=== PATIENT | male | born 1950 | race Caucasian/White ===

== ENCOUNTER 2016-10-17 21:16 | Emergency (ER) | payer OTHER, MEDICARE ==
[~2016-10-17] VITALS: Ht 172.7 cm; Wt 74.8 kg
[~2016-10-17 21:16] MED LIST: ACIDOPHILUS1 EACH PO; ALDACTONE100 MG PO; AMLODIPINE BESYL5 M1 PO; BACTRIM 400-801 EACH PO; ENOXAPARIN100 MG/ML SC; FLOMAX(MONOGRA0.4 MG PO; FLOMAX0.4 M1 PO; FLUCONAZOLE200 M1 PO; FUROSEMIDE20 MG PO; HEPATITIS B VACCINE 10 MCG/ML IM; IMODIUM A-D2 M1 PO; LACTULOSE10 GM/15 M PO; LOVENOX40 MG/0.1 SC; NADOLOL40 MG PO; NEPRO CARB STE237 ML G TUBE; OMEPRAZOLE40 M1 PO; OMEPRAZOLE40 MG PO; OXYCODONE HCL5 M1 PO; OXYCODONE HCL5 MG PO; OXYCODONE5 MG PO; PANTOPRAZOLE SO40 M1 PO; PERCOCET 325 MG1 TA2 PO; PREDNISONE5 M1 PO; PROBIOTIC1 EACH PO; PROGRAF1 M1 PO; PROTONIX 40MG T40 MG PO; ROXICODONE5 MG PO; SENNA PLUS 50 M1 TAB PO; SPIRONOLACTONE50 MG PO; SUCRALFATE1 G1 PO; TRAMADOL HCL50 M1 PO; TRAMADOL HYDROC50 MG PO; TRAMADOL50 MG PO; TRAZODONE HCL50 M1 PO; TRAZODONE50 MG PO; TUMS X-STR300 MG PO; ULTRAM(MONOGRAP50 MG PO; VALGANCICLOVIR450 MG; VALGANCICLOVIR450 MG PO; VITAMIN D50000 IU PO; WARFARIN SODIUM5 MG PO; XIFAXAN550 MG PO; ZINC15 MG PO; ZOFRAN 4 MG TABL4 MG PO; ZOFRAN ODT4 M1 PO; [UNRECOGNIZED DRUG - CODE] SC; [UNRECOGNIZED DRUG - OTHER] PO
--- NOTE | 2016-10-17 22:02 | ED ANIMAL BITE/WOUND CHECK ---
History of Present Illness General Chief Complaint: Animal/Insect Bite Stated Complaint: DOG BITE TOO ARMS Source: patient, family, old records Exam Limitations: no limitations Vital Signs & Intake/Output Vital Signs & Intake/Output Vital Signs Date Time Temp Pulse Resp B/P Pulse O2 O2 Flow FiO2 Ox Delivery Rate 10/17 2127 99.6 80 20 195/90 99 Room Air Allergies Coded Allergies: NO KNOWN ALLERGIES (10/17/16) Reconcile Medications Amlodipine Besylate 5 MG TABLET 1 TAB PO DAILY ELEVATED BP (Reported) PLEASE FOLLOW UP WITH YOUR PCP WITHIN ONE WEEK FOR ADIVICE ON CONTINUING THIS MEDICAITON. PlEASE DONT TAKE THE MEDICATION, IF THE BP IS LESS THAN 110. Amoxicillin/Potassium Clav (Augmentin 875-125 Tablet) 875 MG-125 MG TABLET 1 TAB PO BID DOG BITE Calcium Carbonate (Tums X-Str) 300 MG CALCIUM (750 MG) TAB.CHEW 2 TAB PO TID HEART BURN (Reported) Enoxaparin Sodium (Lovenox) 40 MG/0.4 ML SYRINGE 0.4 ML SC QPM BLOOD THINNER (Reported) Fluconazole 200 MG TABLET 1 TAB PO DAILY PREVENT INFECTION (Reported) Lactobacillus Acidophilus (Acidophilus) 1 EACH CAPSULE 1 CAP PO BID SUPPLEMENT (Reported) Loperamide HCl (Imodium A-D) 2 MG TABLET 3 TAB PO QAM GI (Reported) Loperamide HCl (Imodium A-D) 2 MG TABLET 2 TAB PO QPM GI (Reported) Nut.tx.impaired Renal Fxn,Soy (Nepro Carb Steady) 0.08 GRAM-1.80 KCAL/ML LIQUID 720 ML G TUBE QPM SUPPLEMENT (Reported) Ondansetron (Zofran Odt) 4 MG TAB.RAPDIS 2 TAB PO TID-4XDAILY N/V (Reported) Oxycodone HCl/Acetaminophen (Percocet 5-325 MG Tablet) 5 MG-325 MG TABLET 1-2 TAB PO Q6P PRN PAIN Pantoprazole Sodium 40 MG TABLET.DR 1 TAB PO BID GI (Reported) Prednisone 5 MG TABLET 1 TAB PO DAILY PREVENTS REJECTION (Reported) Sucralfate 1 GRAM TABLET 1 TAB PO BID GI (Reported) Tacrolimus (Prograf) 1 MG CAPSULE 2 CAP PO BID PREVENTS REJECTION (Reported) Tamsulosin HCl (Flomax) 0.4 MG CAP.ER.24H 1 CAP PO DAILY PROSTATE (Reported) Tramadol HCl 50 MG TABLET 1 TAB PO TID PRN PAIN (Reported) Valganciclovir HCl (Unknown Strength) TABLET (Unknown Dose) UNKNOWN (Reported ) Triage Note: TRIAGE: PT TO ER WITH S/O C/C MULTIPLE DOG BITES TO BILATERAL ARMS S/P ENCOUNTER WITH UNKNOWN DOG IN THE YARD TONIGHT. PT TAKES ANTI-REJECTION MEDS AT BASELINE R/T HX OF LIVER, STOMACH, PANCREAS AND SMALL BOWEL TRANSPLANTS 12/2015. Triage Nurses Notes Reviewed? yes HPI: Patient lied to his back yard to get blood for his fire when he noticed a stray dog by the woodpile. Patient attempt to schedule without way with the dog jumped on him and bit him both arms. The dog then ran away. Patient has never seen this dog before. Patient is complaining of 10 out of 10 pain to both arms. The pain is burning in nature. The pain is constant. There is no radiation of the pain. There are no aggravating or mitigating factors. Patient states his last tetanus shot was 2 and half years ago. Past History Travel History Traveled to [place] past 21 day No Medical History Any Pertinent Medical History? see below for history Neurological: uncertain if history of PSE (?ENCEPHALOPATHY) EENT: NONE Cardiovascular: NONE Respiratory: HANCOCK Gastrointestinal: HERNIA SMALL INTESTINE SURGERY Hepatic: CIRRHOSIS,LIVER TRANSPLAN HEPC, PANCREAS TRANSPLAN END STAGE LIVER DISEASE hepatocellular carcinoma ETOH CIRRHOSIS ascites esophageal varices & hx PVT. Renal: nephrolithiasis, KIDNEY FAILURE Musculoskeletal: NONE Psychiatric: anxiety Endocrine: NONE Blood Disorders: coagulopathy, pancytopenia, thrombocytopenia Cancer(s): liver cancer SUPPLY CHAIN COORDINATOR/Reproductive: NONE History of MRSA: No History of VRE: No History of CDIFF: No Pneumonia Vaccine: 03/31/16 Influenza Vaccine: 06/01/16 Surgical History Surgical History: appendectomy, cholecystectomy, PARTIAL HEPATECTOMY 2011 transplantation of the liver, small bowel,pancreas and stomach pancreas Psychosocial History Who do you live with Spouse Services at Home Nursing What is your primary language German Tobacco Use: Quit >30 days ago ETOH Use: denies use Illicit Drug Use: denies illicit drug use Family History Family History, If Any: MOTHER, , Age 78; Cause: CVA (cerebral vascular accident). FATHER (PTSD). , Age 42; Cause: PNA (pneumonia). maternal uncle, ; Cause: Esophageal adenocarcinoma. Relation not specified for: FH: CVA (cerebrovascular accident) Hx Contributory? No Review of Systems Review of Systems Constitutional: Reports: no symptoms. EENTM: Reports: no symptoms. Respiratory: Reports: no symptoms. Cardiovascular: Reports: no symptoms. GI: Reports: no symptoms. Genitourinary: Reports: no symptoms. Musculoskeletal: Reports: see HPI. Skin: Reports: no symptoms. Neurological/Psychological: Reports: no symptoms. Hematologic/Endocrine: Reports: no symptoms. Immunologic/Allergic: Reports: no symptoms. All Other Systems: Reviewed and Negative Physical Exam Physical Exam General Appearance: well developed/nourished, alert, awake, moderate distress Head: atraumatic Eyes: Bilateral: PERRL, EOMI. Ears, Nose, Throat: normal pharynx, normal ENT inspection, hearing grossly normal Neck: normal inspection, supple Respiratory: normal breath sounds Cardiovascular: regular rate/rhythm Gastrointestinal: soft, non-tender Back: normal inspection Extremities: normal range of motion, MULTIPLE SKIN TEARS TO BOTH FOREARMS. nO EVIDENCE OF PUNCTURE WOUNDS. nOTHING TO SUTURE. Neurologic/Psych: awake, alert, oriented x 3, normal mood/affect Skin: intact, normal color, warm/dry Lymphatic: no anterior cervical nadiya Progress Differential Diagnosis: DOG BITE Plan of Care: Current Medications Sig/Tahira Start time Last Medication Dose Stop Time Status Admin Oxycodone/ 1 TAB ONCE ONE 10/17 2214 UNVr Acetaminophen 10/17 2215 (Percocet) Rabies Immune 1,500 UNITS ONCE ONE 10/17 2214 UNVr Globulin 10/17 2215 (Rabies Immune Globlulin Inj) Rabies Vaccine 1 SYR ONCE ONE 10/17 2214 UNVr (Rabies (Vaccine) 10/17 2215 Inj (1ML)) Comments: Wounds have been cleaned and bacitracin applied. Patient started on rabies prophylaxis. Departure Departure Disposition: HOME OR SELF CARE Condition: Stable Clinical Impression Primary Impression: Dog bite Referrals: JEREMÍAS PATEL MD (PCP/Family) Additional Instructions: YOU NEED TO RETURN IN 3, 7 AND 14 DAYS FROM TODAY TO COMPLETE THE RABIES SHOTS TAKE ANTIBIOTICS PRESCRIBED RETURN IF SYMPTOMS WORSEN OR FOR ANY CONCERNS Departure Forms: Customer Survey General Discharge Information Prescriptions: Current Visit Scripts Amoxicillin/Potassium Clav (Augmentin 875-125 Tablet) 1 TAB PO BID #20 TAB Oxycodone HCl/Acetaminophen (Percocet 5-325 MG Tablet) 1-2 TAB PO Q6P PRN PAIN #20 TAB
[2016-10-17] MEDS ORDERED: PERCOCET 5-3251 EACH PO (22:08)
[2016-10-17] MEDS ORDERED: AUGMENTIN 875-1 EACH PO (22:08)
[2016-10-17 23:49] VITALS: BP 195/98
== END 2016-10-17 23:51 ==
LOC: ERH 21:16
DX: S41.151A Open bite of right upper arm, initial encounter (principal); S41.152A Open bite of left upper arm, initial encounter; W54.0XXA Bitten by dog, initial encounter
CPT/HCPCS: 90376; 90471

== ENCOUNTER 2016-10-20 14:29 | Emergency (ER) | payer OTHER, MEDICARE ==
[~2016-10-20] VITALS: Ht 172.7 cm; Wt 74.8 kg
[~2016-10-20 14:29] MED LIST changes: +AUGMENTIN 875-1 EACH PO; +PERCOCET 5-3251 EACH PO
[2016-10-20 14:55] VITALS: BP 165/85
--- NOTE | 2016-10-20 15:44 | ED GENERAL ADULT ---
History of Present Illness General Chief Complaint: Animal/Insect Bite Stated Complaint: 2ND RABIES DOT Source: patient Exam Limitations: no limitations Vital Signs & Intake/Output Vital Signs & Intake/Output Vital Signs Date Time Temp Pulse Resp B/P Pulse O2 O2 Flow FiO2 Ox Delivery Rate 10/20 1455 97.4 80 18 165/85 99 Room Air Allergies Coded Allergies: NO KNOWN ALLERGIES (10/17/16) Reconcile Medications Amlodipine Besylate 5 MG TABLET 1 TAB PO DAILY ELEVATED BP (Reported) PLEASE FOLLOW UP WITH YOUR PCP WITHIN ONE WEEK FOR ADIVICE ON CONTINUING THIS MEDICAITON. PlEASE DONT TAKE THE MEDICATION, IF THE BP IS LESS THAN 110. Amoxicillin/Potassium Clav (Augmentin 875-125 Tablet) 875 MG-125 MG TABLET 1 TAB PO BID DOG BITE Calcium Carbonate (Tums X-Str) 300 MG CALCIUM (750 MG) TAB.CHEW 2 TAB PO TID HEART BURN (Reported) Enoxaparin Sodium (Lovenox) 40 MG/0.4 ML SYRINGE 0.4 ML SC QPM BLOOD THINNER (Reported) Fluconazole 200 MG TABLET 1 TAB PO DAILY PREVENT INFECTION (Reported) Lactobacillus Acidophilus (Acidophilus) 1 EACH CAPSULE 1 CAP PO BID SUPPLEMENT (Reported) Loperamide HCl (Imodium A-D) 2 MG TABLET 3 TAB PO QAM GI (Reported) Loperamide HCl (Imodium A-D) 2 MG TABLET 2 TAB PO QPM GI (Reported) Nut.tx.impaired Renal Fxn,Soy (Nepro Carb Steady) 0.08 GRAM-1.80 KCAL/ML LIQUID 720 ML G TUBE QPM SUPPLEMENT (Reported) Ondansetron (Zofran Odt) 4 MG TAB.RAPDIS 2 TAB PO TID-4XDAILY N/V (Reported) Oxycodone HCl/Acetaminophen (Percocet 5-325 MG Tablet) 5 MG-325 MG TABLET 1-2 TAB PO Q6P PRN PAIN Pantoprazole Sodium 40 MG TABLET.DR 1 TAB PO BID GI (Reported) Prednisone 5 MG TABLET 1 TAB PO DAILY PREVENTS REJECTION (Reported) Sucralfate 1 GRAM TABLET 1 TAB PO BID GI (Reported) Tacrolimus (Prograf) 1 MG CAPSULE 2 CAP PO BID PREVENTS REJECTION (Reported) Tamsulosin HCl (Flomax) 0.4 MG CAP.ER.24H 1 CAP PO DAILY PROSTATE (Reported) Tramadol HCl 50 MG TABLET 1 TAB PO TID PRN PAIN (Reported) Valganciclovir HCl (Unknown Strength) TABLET (Unknown Dose) UNKNOWN (Reported ) Triage Note: 66 Y/O MALE REQUESTING 2ND RABIES VACCINE; DENIES ANY COMPLAINTS Triage Nurses Notes Reviewed? yes Onset: Gradual Duration: day(s): (3) Timing: recent history Injury Environment: home Severity: mild HPI: Patient is here for second rabies vaccinations. No complaints. Denies any fevers or chills no headaches. No visual changes. Denies any nausea or vomiting chest pain or shortness of breath. (RACHEAL BRENNAN) Past History Travel History Traveled to [place] past 21 day No Medical History Any Pertinent Medical History? see below for history Neurological: uncertain if history of PSE (?ENCEPHALOPATHY) EENT: NONE Cardiovascular: NONE Respiratory: HANCOCK Gastrointestinal: HERNIA SMALL INTESTINE SURGERY Hepatic: CIRRHOSIS,LIVER TRANSPLAN HEPC, PANCREAS TRANSPLAN END STAGE LIVER DISEASE hepatocellular carcinoma ETOH CIRRHOSIS ascites esophageal varices & hx PVT. Renal: nephrolithiasis, KIDNEY FAILURE Musculoskeletal: NONE Psychiatric: anxiety Endocrine: NONE Blood Disorders: coagulopathy, pancytopenia, thrombocytopenia Cancer(s): liver cancer BILLING CONTROL CLERK/Reproductive: NONE History of MRSA: No History of VRE: No History of CDIFF: No Pneumonia Vaccine: 03/31/16 Influenza Vaccine: 06/01/16 Surgical History Surgical History: appendectomy, cholecystectomy, PARTIAL HEPATECTOMY 2012 transplantation of the liver, small bowel,pancreas and stomach pancreas Psychosocial History Who do you live with Spouse Services at Home Nursing What is your primary language Armenian Tobacco Use: Quit >30 days ago Family History Family History, If Any: MOTHER, , Age 78; Cause: CVA (cerebral vascular accident). FATHER (PTSD). , Age 42; Cause: PNA (pneumonia). maternal uncle, ; Cause: Esophageal adenocarcinoma. Relation not specified for: FH: CVA (cerebrovascular accident) Hx Contributory? No (RACHEAL BRENNAN) Review of Systems Review of Systems Constitutional: Reports: no symptoms. Comments Review of systems: See HPI, All other systems negative. Constitutional, no chills fever or weight loss HEENT: No visual changes no sore throat no congestion Cardiovascular: No chest pain ,palpitation Skin, no jaundice no rashes Respiratory: No dyspnea cough sputum or hemoptysis GI: No nausea no vomiting Muscle skeletal: no back pain, no neck pain, Neurologic: No numbness no confusion Psych: No stress anxiety Immunology: No splenectomy or history of AIDS (RACHEAL BRENNAN) Physical Exam Physical Exam General Appearance: well developed/nourished, no apparent distress, alert, awake , comfortable Comments: Well-developed well-nourished no apparent distress. HEENT: Atraumatic, extraocular motion intact Neck: Supple, no lymphadenopathy Back: Nontender Respiratory: No respiratory distress Extremities: No edema, full range of motion Neuro: Alert and oriented x3 Psych: Mood affect normal, normal memory normal judgment. Core Measures ACS in differential dx? No CVA/TIA Diagnosis: No Severe Sepsis Present: No Septic Shock Present: No (RACHEAL BRENNAN) Progress Differential Diagnoses I considered the following diagnoses in my evaluation of the patient: Need for prophylaxis against rabies Plan of Care: Current Medications Sig/Tahira Start time Last Medication Dose Stop Time Status Admin Rabies Vaccine 1 SYR ONCE ONE 10/20 1545 UNVr (Rabies (Vaccine) 10/20 1546 Inj (1ML)) Initial ED EKG: none Comments: Given rabies immunization (RACHEAL BRENNAN) Departure Departure Time of Disposition: 1551 Disposition: HOME OR SELF CARE Condition: Stable Clinical Impression Primary Impression: Rabies, need for prophylactic vaccination against Referrals: JEREMÍAS PATEL MD (PCP/Family) Additional Instructions: Follow-up as scheduled for Next rabies vaccination return for worsening symptoms or concerns. Departure Forms: Customer Survey General Discharge Information (RACHEAL BRENNAN) PA/MACHINE CARTON MARKER Co-Sign Statement Statement: ED Attending supervision documentation- [] I saw and evaluated the patient. I have also reviewed all the pertinent lab results and diagnostic results. I agree with the findings and the plan of care as documented in the PA's/MACHINE CARTON MARKER's documentation. [X] I have reviewed the ED Record and agree with the PA's/MACHINE CARTON MARKER's documentation. [] Additions or exceptions (if any) to the PAs/MACHINE CARTON MARKER's note and plan are summarized below: [] (YUKO MARIE,MITRA) Critical Care Note Critical Care Note Critical Care Time: non-applicable (RACHEAL BRENNAN)
== END 2016-10-20 16:19 ==
LOC: ERH 14:29
DX: Z23 Encounter for immunization (principal)
CPT/HCPCS: 90471; 99281

== ENCOUNTER 2017-02-22 19:56 | Emergency (ER) | payer OTHER, MEDICARE ==
[~2017-02-22] VITALS: Ht 172.7 cm; Wt 74.8 kg
--- NOTE | 2017-02-22 20:20 | ED ANIMAL BITE/WOUND CHECK ---
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 DOG IS CURRENT WITH IMMUNIZATIONS. DOG IS A CATAHOULA LEOPARD. "A [employer] DOG" AND IS 100 LBS. PT IS CURRENT WITH TETANUS. Triage Nurses Notes Reviewed? yes Onset: Abrupt Duration: minute(s):, constant, continues in ED Timing: single episode today Injury Environment: home Is Injury an Animal Bite? Yes Animal Type: dog No Modifying Factors: none HPI: 67-year-old male comes into emergency room for further evaluation of multiple dog bites and skin abrasions to his bilateral upper extremities. Dog is up-to- date on its rabies. and were dancing and the dog jumped up and got defensive. Multiple bites/abrasions on bilateral upper extremities as well as bites on left ankle. Patient's tetanus shot is up-to-date. he is a transplant patient with a history of liver transplant as well as ball and stomach transplant. (ALIS BANEGAS,KEV) Reconcile Medications Amlodipine Besylate 5 MG TABLET 1 TAB PO DAILY ELEVATED BP (Reported) PLEASE FOLLOW UP WITH YOUR PCP WITHIN ONE WEEK FOR ADIVICE ON CONTINUING THIS MEDICAITON. PlEASE DONT TAKE THE MEDICATION, IF THE BP IS LESS THAN 110. Amoxicillin/Potassium Clav (Augmentin 875-125 Tablet) 875 MG-125 MG TABLET 1 TAB PO BID dog bite Amoxicillin/Potassium Clav (Augmentin 875-125 Tablet) 875 MG-125 MG TABLET 1 TAB PO BID DOG BITE Calcium Carbonate (Tums X-Str) 300 MG CALCIUM (750 MG) TAB.CHEW 2 TAB PO TID HEART BURN (Reported) Enoxaparin Sodium (Lovenox) 40 MG/0.4 ML SYRINGE 0.4 ML SC QPM BLOOD THINNER (Reported) Fluconazole 200 MG TABLET 1 TAB PO DAILY PREVENT INFECTION (Reported) Lactobacillus Acidophilus (Acidophilus) 1 EACH CAPSULE 1 CAP PO BID SUPPLEMENT (Reported) Loperamide HCl (Imodium A-D) 2 MG TABLET 3 TAB PO QAM GI (Reported) Loperamide HCl (Imodium A-D) 2 MG TABLET 2 TAB PO QPM GI (Reported) Nut.tx.impaired Renal Fxn,Soy (Nepro Carb Steady) 0.08 GRAM-1.80 KCAL/ML LIQUID 720 ML G TUBE QPM SUPPLEMENT (Reported) Ondansetron (Zofran Odt) 4 MG TAB.RAPDIS 2 TAB PO TID-4XDAILY N/V (Reported) Oxycodone HCl 5 MG TABLET 1-2 TAB PO Q8P PRN pain Oxycodone HCl/Acetaminophen (Percocet 5-325 MG Tablet) 5 MG-325 MG TABLET 1-2 TAB PO Q6P PRN PAIN Pantoprazole Sodium 40 MG TABLET.DR 1 TAB PO BID GI (Reported) Prednisone 5 MG TABLET 1 TAB PO DAILY PREVENTS REJECTION (Reported) Sucralfate 1 GRAM TABLET 1 TAB PO BID GI (Reported) Tacrolimus (Prograf) 1 MG CAPSULE 2 CAP PO BID PREVENTS REJECTION (Reported) Tamsulosin HCl (Flomax) 0.4 MG CAP.ER.24H 1 CAP PO DAILY PROSTATE (Reported) Tramadol HCl 50 MG TABLET 1 TAB PO TID PRN PAIN (Reported) Valganciclovir HCl (Unknown Strength) TABLET (Unknown Dose) UNKNOWN (Reported ) (DERRICK MARIE,TAMERA Mendoza) Past History Travel History Traveled to [place] past 21 day No Medical History Any Pertinent Medical History? see below for history Neurological: uncertain if history of PSE (?ENCEPHALOPATHY) EENT: NONE Cardiovascular: NONE Respiratory: HANCOKC Gastrointestinal: HERNIA SMALL INTESTINE SURGERY Hepatic: CIRRHOSIS,LIVER TRANSPLAN HEPC, PANCREAS TRANSPLAN END STAGE LIVER DISEASE hepatocellular carcinoma ETOH CIRRHOSIS ascites esophageal varices & hx PVT. Renal: nephrolithiasis, KIDNEY FAILURE Musculoskeletal: NONE Psychiatric: anxiety Endocrine: NONE Blood Disorders: coagulopathy, pancytopenia, thrombocytopenia Cancer(s): liver cancer PONY CYLINDER PRESS OPERATOR/Reproductive: NONE History of MRSA: No History of VRE: No History of CDIFF: No Pneumonia Vaccine: 03/31/16 Influenza Vaccine: 06/01/16 Surgical History Surgical History: appendectomy, cholecystectomy, PARTIAL HEPATECTOMY 2011 transplantation of the liver, small bowel,pancreas and stomach pancreas Psychosocial History Who do you live with Spouse Services at Home Nursing What is your primary language [place] Citizen Tobacco Use: Quit >30 days ago ETOH Use: denies use Illicit Drug Use: denies illicit drug use Family History Family History, If Any: MOTHER, , Age 78; Cause: CVA (cerebral vascular accident). FATHER (PTSD). , Age 42; Cause: PNA (pneumonia). maternal uncle, ; Cause: Esophageal adenocarcinoma. Relation not specified for: FH: CVA (cerebrovascular accident) Hx Contributory? No (KEV DUNN) Review of Systems Review of Systems Constitutional: Reports: no symptoms. EENTM: Reports: no symptoms. Respiratory: Reports: no symptoms. Cardiovascular: Reports: no symptoms. GI: Reports: no symptoms. Genitourinary: Reports: no symptoms. Musculoskeletal: Reports: see HPI. Skin: Reports: see HPI. Neurological/Psychological: Reports: no symptoms. Hematologic/Endocrine: Reports: see HPI. Immunologic/Allergic: Reports: no symptoms. All Other Systems: Reviewed and Negative (KEV DUNN) Physical Exam Physical Exam General Appearance: well developed/nourished, mild distress Head: atraumatic Eyes: Bilateral: normal appearance. Ears, Nose, Throat: normal ENT inspection, hearing grossly normal Neck: normal inspection Respiratory: no respiratory distress Cardiovascular: regular rate/rhythm Back: normal inspection Extremities: normal range of motion, puncture wound to left ankle, Multiple skin abrasions to left upper extremity bilaterally, associated bleeding MILD BLEEDING , no lacerations, Neurologic/Psych: awake, alert, oriented x 3, normal mood/affect Skin: intact, normal color, warm/dry Lymphatic: no anterior cervical nadiya (KEV DUNN) Progress Differential Diagnosis: abscess, cellulitis, joint infection, tenosysnovitis Plan of Care: Orders Procedure Date/time Status XRY-ANKLE 3 OR MORE VIEWS L 02/22 2059 Active Current Medications Sig/Tahira Start time Last Medication Dose Stop Time Status Admin Amoxicillin/ 500 MG ONCE ONE 02/22 2115 UNVr Clavulanate Potassium 02/23 2116 (Augmentin) Oxycodone HCl 5 MG ONCE ONE 02/22 2115 UNVr (Roxicodone) 02/23 211602/22/2017 8:45:24 PM Patient started on Augmentin. Spoke with krystin was the on-call coordinator for the transplant center that he goes to him. sHe reports that Augmentin is fine. Watch for signs of infection such as redness swelling discharge fever or chills. Keep covered with bacitracin and dry dressing. (KEV DUNN) Diagnostic Imaging: Viewed by Me: Radiology Read. Discussed w/RAD: Radiology Read. Radiology Impression: SERVICE DATE: 02/22/17 EXAM TYPE: RAD - XRY-ANKLE 3 OR MORE VIEWS L EXAMINATION: XR ANKLE, LEFT CLINICAL INFORMATION: Dx: R/O FX, BIT HE HELD HIS LEG JOVI LEFT ANKLE COMPARISON: None TECHNIQUE: AP, lateral, and mortise views of the left ankle. FINDINGS: No fracture. No dislocation. Ankle mortise is congruent. There is a plantar calcaneal spur measuring about 4 mm. IMPRESSION: No acute abnormality left ankle. Comments: Nurse irrigated the wound with copious amounts of saline and peroxide and dressed them with bacitracin and dry dressing. Nothing suturable on exam. I spoke with the patient's on-call physician conference assistant krystin in regards to starting the patient on Augmentin. She agrees with plan and reports that this medication is fine and appropriate even with his transplant history. Dog was up-to-date on rabies. Patient is a up-todate tetanus shot. (KEV DUNN) Departure Departure Disposition: HOME OR SELF CARE Condition: Stable Clinical Impression Primary Impression: Dog bite Referrals: JEREMÍAS PATEL MD (PCP/Family) Additional Instructions: Take Augmentin as prescribed. Confirm this with your doctors at [facility]. Return if any other concerns. Please go over all results of today's visit with your primary care doctor. Contact your primary care doctor to let them know you were here in the emergency room. There may be nonspecific findings which may not be related to your visit today here in the emergency room but may require further evaluation and chronic monitoring by your primary care doctor. If you had a laceration today the chance of foreign body always remains. You should follow-up with your primary care doctor for recheck in 3-5 days for a wound check. If you had an x-ray done there is a chance that a fracture could have been missed on initial read and you should follow-up with your primary care doctor for repeat x-rays if symptoms persist. If your blood pressure was elevated here in the emergency room please have rechecked by her primary care doctor within the next 48 hours by your primary care doctor. If you were prescribed a narcotic here in the emergency room or any type of controlled substances you're not allowed to drive while taking this medication or operate any type of heavy machinery. Narcotics can make you feel lightheaded dizziness nausea and can cause constipation. You may need to garbage pick up worker a stool softener. Thank you for choosing [facility] emergency room. Please return to the emergency room immediately if you have any other concerns worsening of symptoms. Departure Forms: Customer Survey General Discharge Information Prescriptions: Current Visit Scripts Amoxicillin/Potassium Clav (Augmentin 875-125 Tablet) 1 TAB PO BID #14 TAB Oxycodone HCl 1-2 TAB PO Q8P PRN pain #10 TAB (KEV DUNN) PA/OFFICE CLERK ROUTINE Co-Sign Statement Statement: ED Attending supervision documentation- [X] I saw and evaluated the patient. I have also reviewed all the pertinent lab results and diagnostic results. I agree with the findings and the plan of care as documented in the PA's/OFFICE CLERK ROUTINE's documentation. [X] I have reviewed the ED Record and agree with the PA's/OFFICE CLERK ROUTINE's documentation. [] Additions or exceptions (if any) to the PAs/OFFICE CLERK ROUTINE's note and plan are summarized below: [] (DERRICK MARIE,TAMERA Mendoza)
[2017-02-22] MEDS ORDERED: AUGMENTIN 875-1 EACH PO (21:03)
[2017-02-22] MEDS ORDERED: OXYCODONE HCL5 M1 PO (21:03)
[2017-02-22 21:20] VITALS: BP 160/52
--- NOTE | 2017-02-22 21:20 | RADIOLOGY REPORT ---
EXAMINATION: XR ANKLE, LEFT CLINICAL INFORMATION: Dx: R/O FX, BIT HE HELD HIS LEG JOVI LEFT ANKLE COMPARISON: None TECHNIQUE: AP, lateral, and mortise views of the left ankle. FINDINGS: No fracture. No dislocation. Ankle mortise is congruent. There is a plantar calcaneal spur measuring about 4 mm. IMPRESSION: No acute abnormality left ankle.
== END 2017-02-22 23:51 ==
LOC: ERH 19:56
DX: S51.851A Open bite of right forearm, initial encounter (principal); S51.852A Open bite of left forearm, initial encounter; W54.0XXA Bitten by dog, initial encounter; Y93.41 Activity, dancing; Y92.9 Unspecified place or not applicable
CPT/HCPCS: 73610-LT; J3490